=== PATIENT | female | born 1995 | race African-American/Black ===

== ENCOUNTER 2019-01-16 06:21 | Emergency (ER) | payer OTHER ==
[~2019-01-16] VITALS: Ht 172.7 cm; Wt 68.2 kg
[2019-01-16 07:21] LABS: BASO % 0.6 % (0.0-1.0); EOS % 0.6 % (0.0-3.0); HEMATOCRIT 39.8 % (36.0-47.0); HEMOGLOBIN 12.7 g/dl (12.0-15.5); LYMPH # 1.1 10^3/uL (1.5-5.0); LYMPH % 33.4 % (24.0-44.0); MEAN CORPUSCULAR HEMOGLOBIN 31.7 pg (27.0-33.0); MEAN CORPUSCULAR HGB CONC 31.9 g/dl (32.0-36.5); MEAN CORPUSCULAR VOLUME 99.3 fl (80.0-96.0); MONO # 0.5 10^3/uL (0.0-0.8); MONO % 16.6 % (0.0-5.0); NEUTROPHILS # 1.6 10^3/uL (1.5-8.5); NEUTROPHILS % 48.8 % (36.0-66.0); PLATELET COUNT, AUTOMATED 218 10^3/uL (150-450); RED BLOOD COUNT 4.01 10^6/uL (4.00-5.40); WHITE BLOOD COUNT 3.2 10^3/uL (4.0-10.0)
[2019-01-16 07:35] LABS: MONO SCRN NEGATIVE (NEGATIVE)
[2019-01-16] MEDS ORDERED: IBUPROFEN 800 MG TAB PO ONE (07:45)
[2019-01-16 07:46] LABS: INFLUENZA A AMPLIFICATION NEGATIVE (NEGATIVE); INFLUENZA B AMPLIFICATION POSITIVE (NEGATIVE)
[2019-01-16 08:50] VITALS: BP 125/63
== END 2019-01-16 09:10 | disposition home or self-care (01) ==
LOC: M ED 06:21
DX: J11.1 Influenza due to unidentified influenza virus with other respiratory manifestations (principal)